=== PATIENT | female | born 2005 | race Caucasian/White ===

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

== ENCOUNTER 2023-06-19 17:28 | Emergency (ER) | payer OTHER ==
[~2023-06-19] VITALS: Ht 160 cm; Wt 109.7 kg
--- OUTSIDE RECORDS SUMMARY | ~2023-06-19 | XMS | Continuity of Care Document ---
Demographics + + + | Address | [address] | | | [place] [address] | + + + | Preferred Language | Unknown | + + + | Marital Status | Never | + + + | Congregation Affiliation | Unknown | + + + | Race | White | + + + | Ethnic Group | Not or | + + + Author + + + | Author | [facility] | + + + | Organization | [facility] | + + + | Address | [address] | | | [place] [address] | + + + | Phone | | + + + Care Team Providers + + + + | Care Data Lead Name | Role | Phone | + + + + Unavailable | Unavailable | + + + + Unavailable | Unavailable | + + + + Allergies and Intolerances + + + + + + | date | description | facility | reaction | severity | + + + + + + | (no date) | Mild [facility] (no reaction) | (no severity) | | [facility] | | | + + + + + + Encounters No information. Functional Status No information. Immunizations No information. Medications + + + + | date | description | facility | + + + + | 2022-12-19 00:00 | Testosterone | [facility] | + + + + | 2022-12-19 00:00 | MONTELUKAST SODIUM | [facility] | + + + + | 2022-12-19 00:00 | SUMATRIPTAN SUCCINATE | [facility] | + + + + | 2019-07-07 00:00 | CEPHALEXIN | [facility] | + + + + | 2019-10-21 00:00 | predniSONE | [facility] | + + + + | 2022-12-19 00:00 | AMOXICILLIN/POTASSIUM CLAV | [facility] | | | | | + + + + | 2019-10-21 00:00 | ALBUTEROL SULFATE | [facility] | + + + + | 2022-12-19 00:00 | ALBUTEROL SULFATE | [facility] | + + + + | 2022-12-19 00:00 | FLUTICASONE PROPIONATE | [facility] | + + + + Problems + + + + | date | description | facility | + + + + | 2016-02-22 00:00 | Acute allergic reaction | [facility] | + + + + | 2017-04-07 00:00 | Cyst of right ovary | [facility] | + + + + | 2017-04-07 00:00 | Abdominal pain | [facility] | + + + + | 2018-03-09 00:00 | Autistic disorder | [facility] | + + + + | 2019-07-07 00:00 | Urinary tract infection | [facility] | + + + + | 2021-12-24 00:00 | Right upper quadrant | [facility] | | | abdominal pain | | + + + + | 2022-12-19 00:00 | Migraine headache | [facility] | + + + + Procedures No information. Results/Labs No information. Social History No information. Vital Signs + + + +---------+ | date | measurement | value | units | + + + +---------+ | 2022-12-19 00:00 | BMI | 41.1 | kg/m2 | + + + +---------+ | 2022-12-19 00:00 | BMI | 50 | % | + + + +---------+ | 2022-12-19 00:00 | BP_diastolic | 43 | mmHg | + + + +---------+ | 2022-12-19 00:00 | BP_systolic | 107 | mmHg | + + + +---------+ | 2022-12-19 00:00 | heart_rate | 74 | /min | + + + +---------+ | 2022-12-19 00:00 | height_metric | 160.02 | cm | + + + +---------+ | 2022-12-19 00:00 | height_standard | 63 | in | + + + +---------+ | 2022-12-19 00:00 | o2_saturation | 98 | % | + + + +---------+ | 2022-12-19 00:00 | respiration_rate | 14 | /min | + + + +---------+ | 2022-12-19 00:00 | temperature_metric | 37.11 | C | | | | | | + + + +---------+ | 2022-12-19 00:00 | | 98.8 | F | | | temperature_standar | | | | | d | | | + + + +---------+ | 2022-12-19 00:00 | weight_metric | 105.23 | kg | + + + +---------+ | 2022-12-19 00:00 | weight_standard | 232 | lb | + + + +---------+"
--- OUTSIDE RECORDS SUMMARY | ~2023-06-19 | XMS | Continuity of Care Document ---
Demographics + + + | Address | [address] | | | [place] [address] | + + + | Preferred Language | Unknown | + + + | Marital Status | Never | + + + | Moravian Affiliation | Unknown | + + + | Race | White | + + + | Ethnic Group | Not or | + + + Author + + + | Author | [facility] | + + + | Organization | [facility] | + + + | Address | [address] | | | [place] [address] | + + + | Phone | | + + + Care Team Providers + + + + | Care Polymer Materials Consultant Name | Role | Phone | + [...] | 2022-12-19 00:00 | Testosterone | [facility] | + + + + | 2022-12-19 00:00 | MONTELUKAST SODIUM | [facility] | + + + + | 2022-12-19 00:00 | SUMATRIPTAN SUCCINATE | [facility] | + + + + | 2019-07-07 00:00 | CEPHALEXIN | [facility] | + + + + | 2019-10-21 00:00 | predniSONE | [facility] | + + + + | 2022-12-19 00:00 | AMOXICILLIN/POTASSIUM CLAV | [facility] | | | | | + + + + | 2019-10-21 00:00 | ALBUTEROL SULFATE | [facility] | + + + + | 2022-12-19 00:00 | ALBUTEROL SULFATE | [facility] | + + + + | 2022-12-19 00:00 | FLUTICASONE PROPIONATE | [facility] | + + + + Problems + + + + | date | description | facility | + + + + | 2016-02-22 00:00 | Acute allergic reaction | [facility] | + + + + | 2017-04-07 00:00 | Cyst of right ovary | [facility] | + + + + | 2017-04-07 00:00 | Abdominal pain | [facility] | + + + + | 2018-03-09 00:00 | Autistic disorder | [facility] | + + + + | 2019-07-07 00:00 | Urinary tract infection | [facility] | + + + + | 2021-12-24 00:00 | Right upper quadrant | [facility] | | | abdominal pain | | + + + + | 2022-12-19 00:00 | Migraine headache | [facility] | + + + + Procedures [...]
[~2023-06-19 17:28] MED LIST changes: +IMITREX25 MG PO
[2023-06-19] MEDS ORDERED: FINASTERIDE1 MG PO (17:38)
[2023-06-19] MEDS ORDERED: MONTELUKAST SOD10 MG PO (17:38)
[2023-06-19] MEDS ORDERED: TESTOSTERONE5 GM TD (17:38)
[2023-06-19] MEDS ORDERED: FLUTICASONE PRO12 GM INH (17:39)
[2023-06-19 18:58] VITALS: BP 100/65
== END 2023-06-19 18:59 | disposition home or self-care (01) ==
LOC: ED 17:28 → EDSEX 17:28 → ED 18:59
DX: S93.402A Sprain of unspecified ligament of left ankle, initial encounter (principal); W10.9XXA Fall (on) (from) unspecified stairs and steps, initial encounter; X50.1XXA Overexertion from prolonged static or awkward postures, initial encounter; J45.909 Unspecified asthma, uncomplicated; Z88.2 Allergy status to sulfonamides; Z79.899 Other long term (current) drug therapy
CPT/HCPCS: 73610; 73630; 99283-25

== ENCOUNTER 2024-06-06 07:18 | Day surgery (SDC) | payer OTHER ==
[2024-05-31 15:41] VITALS: BP 115/74
[~2024-06-06] VITALS: Ht 160 cm; Wt 115.5 kg
[~2024-06-06 07:18] MED LIST changes: +FINASTERIDE1 MG PO; +FLUTICASONE PRO12 GM INH; +IBLOOD GLUCOSE TEST STRIP 1 EA TEST VI PRN; +LACTATED RINGER'S 1,000 ML IV SCH; +LIDOCAINE HCL 1% 5 ML SDV INJ ONE; +TESTOSTERONE5 GM TD
[2024-06-06 07:27] VITALS: BP 133/76
--- NOTE | 2024-06-06 08:02 | NUR ---
VISITED DURING SPIRITUAL CARE ROUNDS. PT ANXIOUS ABOUT IV, LOOKING FORWARD POSITIVE OUTCOME FROM PROCEDURE. LAST CODE STRIPER PROVIDED SUPPORTIVE PRESENCE, ANXIETY CONTAINMENT, NORMALIZED PT EXPERIENCE, PROVIDED PRAYER. PT EXPRESSED GRATITUDE.
[2024-06-06] MEDS ORDERED: fentaNYL citrate 100 MCG/2 ML VIAL ONE (10:58)
[2024-06-06] MEDS ORDERED: ACETAMINOPHEN 1,000 MG/100 ML VIAL ONE (10:59)
[2024-06-06] MEDS ORDERED: LIDOCAINE HCL 2% 5 ML SDV ONE (10:59)
[2024-06-06] MEDS ORDERED: KETOROLAC TROMETHAMINE 30 MG/ML VIAL ONE (10:59)
[2024-06-06] MEDS ORDERED: propofoL 200 MG/20 ML VIAL ONE (10:59)
[2024-06-06] MEDS ORDERED: ROCURONIUM BROMIDE 50 MG/5 ML SYR ONE (10:59)
[2024-06-06] MEDS ORDERED: DEXAMETHASONE SOD PHOS 4 MG/ML VIAL ONE (10:59)
[2024-06-06] MEDS ORDERED: ondansetron HCL 4 MG/2 ML VIAL ONE (10:59)
[2024-06-06] MEDS ORDERED: dexmedeTOMIDine HCl 200 MCG/2 ML VIAL ONE (10:59)
[2024-06-06] MEDS ORDERED: NALOXONE HCL 0.4 MG SYR IV PRN ×2 (12:15→12:30)
[2024-06-06] MEDS ORDERED: ondansetron HCL 4 MG/2 ML VIAL IV PRN ×2 (12:15→12:30)
[2024-06-06] MEDS ORDERED: IBLOOD GLUCOSE TEST STRIP 1 EA TEST VI PRN (12:15)
[2024-06-06] MEDS ORDERED: droPERidol 5 MG/2 ML VIAL IV PRN (12:15)
[2024-06-06] MEDS ORDERED: fentaNYL citrate 50 MCG/ML SDV IV PRN (12:15)
--- NOTE | 2024-06-06 12:19 | NUR ---
06/06/24 1219 Halima Miles PATIENT REPORTS "NOT REALLY" WHEN ASKED IF THEY ARE HAVING PAIN.
[2024-06-06] MEDS ORDERED: MORPHINE SULFATE 10 MG/ML VIAL IV PRN (12:30)
[2024-06-06] MEDS ORDERED: PROCHLORPERAZINE EDISYLATE 10 MG/2 ML VIAL IV PRN (12:30)
[2024-06-06] MEDS ORDERED: MAGNESIUM HYDROXIDE/AL HYDROX 30 ML CUP PO PRN (12:30)
[2024-06-06] MEDS ORDERED: FAMOTIDINE 20 MG/ 2 ML VIAL IV PRN (12:30)
[2024-06-06] MEDS ORDERED: HYDROCODONE/ACETA 5/325 TAB PO PRN (12:30)
[2024-06-06] MEDS ORDERED: METOCLOPRAMIDE HCL 10 MG/2 ML SDV IV PRN (12:30)
[2024-06-06] MEDS ORDERED: SIMETHICONE 125 MG TABLET CHEWABLE PO PRN (12:30)
[2024-06-06 12:41] VITALS: BP 125/51
--- NOTE | 2024-06-06 12:54 | NUR ---
1234 PT ARRIVED TO DAY SURGERY FROM PACU VIA STRECHER. PT REPORTS 4/10 TOLERABLE PAIN. PT REPORTS NO NAUSEA, BUT REPORTS GETTING DIZZY WHEN OPENING EYES. PT MOTHER AT BEDSIDE. VITALS TAKEN, IV ASSESSED. PT HAS ICE WATER AND PUDDING AT BEDSIDE. BED LOW AND LOCKED AND CALL LIGHT WITHIN REACH.
[2024-06-06] MEDS ORDERED: SIMETHICONE 125 MG TABLET CHEWABLE PO SCH (13:00)
[2024-06-06] MEDS ORDERED: SUGAMMADEX SODIUM 200 MG/2 ML ML ONE (13:20)
[2024-06-06 13:49] VITALS: BP 116/59
--- NOTE | 2024-06-06 13:53 | NUR ---
1350 PT MORE AWAKE NOW. PT ABLE TO TOLERATE PO FLUIDS. PT REPORTS NOT BEING DIZZY ANYMORE. VITALS TAKEN IV ASSESSED. PT MOTHER AT BEDSIDE. PT REPORTS 4/10 TOLERABLE PAIN.
[2024-06-06 14:40] VITALS: BP 123/63
--- NOTE | 2024-06-06 14:41 | NUR ---
1441 VITALS TAKEN. IV ASSESSED. PT REPORTS TOLERABLE 3/10 PAIN. PT REPORTS NO NAUSEA. PT HAS CALL LIGHT WITHIN REACH, PERSONAL ITEMS WITHIN REACH. MOTHER AND FRIEND AT BEDSIDE.
--- NOTE | 2024-06-06 14:51 | NUR ---
1445 pt able to ambulate to bathroom and void 400 mls of urine. discharge inforamtion gone over with mother at bedside. pt getting dressed on own.
--- NOTE | 2024-06-06 15:10 | NUR ---
1457 PT IV DISCONTINUED, WRAPPED IN COBAN AND GAUZE. 1458 PT DISCHARGED FROM DAY SURGERY. PT HAS BEEN ABLE TO TOLERATE PO FLUIDS AND PUDDING. PT WAS ABLE TO VOID. PT DISCHARGED FROM DAY SURGERY VIA WHEELCHAIR TO THE FRONT OF THE HOSPITAL TO PT'S MOTHER'S CAR.
--- NOTE | 2024-06-06 19:07 | OR ---
[facility] [address] [place], [place] [address] Signed DATE OF OPERATION: 06/06/2024 SURGEON: Olvin Sanchez DO PREOPERATIVE DIAGNOSES: 1. Desires salpingectomy. 2. Morbid obesity. POSTOPERATIVE DIAGNOSES: 1. Desires salpingectomy. 2. Morbid obesity. PROCEDURE PERFORMED: Laparoscopic bilateral salpingectomy. BARREL SCRAPER: Isha Bernal MD ANESTHESIA: General. ESTIMATED BLOOD LOSS: 5 mL. COMPLICATIONS: None. SPECIMEN: Bilateral fallopian tubes. FINDINGS: Normal external genitalia with normal clitoris, urethral meatus, bilateral [place]'s and Bartholin's. Significant vaginal atrophy and quite narrow introitus that bled with gentle operative prep by the RN. Cervix is small and extremely high and unable to be well visualized. On laparoscopy, normal liver, stomach, uterus, tubes, and ovaries. No pelvic pathology identified. Hemostasis at the end the procedure. INDICATIONS: Inocencio is a pleasant 18-year-old trans male patient, who presents for bilateral salpingectomy. The patient is currently sexually active with one male partner and not Electronically Signed By: OLVIN SANCHEZ DO (JD) 06/06/24 1907 PATIENT NAME: INOCENCIO DE LEON [facility] OPERATIVE REPORT DATE OF : 03 REPORT #: [id number] PHYSICIAN: OLVIN SANCHEZ DO (JD) PCP: FELICE SOTO MD REPORT IS CONFIDENTIAL AND NOT TO BE RELEASED WITHOUT AUTHORIZATION [facility] [address] [place], [place] [address] Signed currently on anything for contraception. They would like to avoid at all cost and the patient would like to decrease risk of ovarian cancer. Desires bilateral salpingectomy which was endorsed by her psychiatric care team as well as her PCP. Patient is also supported by their family including mother who is attending patient today. Risks, benefits, and alternatives were discussed in detail with the patient. The patient understands and wished to proceed with the procedure. DESCRIPTION OF PROCEDURE: The patient was taken to the OR where time-out was performed to confirm correct patient and correct procedure. General anesthesia was adequately established. The patient was prepped and draped in the dorsal lithotomy position with the feet in Yellofin stirrups. ICPs were on and running and no preoperative antibiotics or heparin was indicated. A Baugh catheter was inserted. A very narrow introitus was noted with a small amount of bleeding from vaginal prep performed by the RN. A Yuliana retractor was placed in the vagina and attempts to visualize and grasp the cervix was performed. However, given the very high nature of the cervix and risk for additional incidental irritation to the vagina, the decision was made to abandon uterine manipulation. A sponge stick was then gently placed in the vagina and attention was turned to the abdomen. Surgeon's gloves were changed. The base of the umbilicus was infiltrated with 0.25% Marcaine with epinephrine and a 5 mm stab incision was made with an 11 blade. A 5 mm port was placed under direct visualization without complication with identification of each layer and with low opening pressures noted. Survey of the abdomen and pelvis was performed demonstrating normal liver, stomach, uterus, tubes, and ovaries, and no obvious endometriosis or other pelvic pathology. 5 mm compounding assistant ports were placed in the left lower and right lower quadrants under direct visualization without complication. A complete survey of the pelvis was performed again confirming no pelvic pathology. Attention was turned to salpingectomy. The right fallopian tube was grasped at the fimbriated end, elevated and divided along the mesosalpinx to the cornua. The tube was amputated at the cornu and sent to pathology for further evaluation. The process repeated on the left side without difficulty. Excellent hemostasis was appreciated. The pneumoperitoneum was reduced. Trocars were removed and trocar sites were repaired using 3-0 Vicryl Rapide. The Baugh catheter was removed. Sponge stick was removed and the patient was taken to the PACU in good and stable condition. Sponge, needle, and instrument counts was correct x2 at the end of the procedure. Dr. Bernal was present and participated in all portions of procedure. Electronically Signed By: OLVIN SANCHEZ DO (JD) 06/06/24 1907 PATIENT NAME: INOCENCIO DE LEON OPERATIVE REPORT DATE OF : 03 REPORT #: [id number] PHYSICIAN: OLVIN SANCHEZ DO (JD) PCP: FELICE SOTO MD REPORT IS CONFIDENTIAL AND NOT TO BE RELEASED WITHOUT AUTHORIZATION [address] [address] Signed DO ANDI Hebert/MODL /[id number] Copies: ~ Electronically Signed By: OLVIN SANCHEZ DO (JD) 06/06/24 1907 PATIENT NAME: INOCENCIO DE LEON [facility] OPERATIVE REPORT DATE OF : 03 REPORT #: [id number] PHYSICIAN: OLVIN SANCHEZ DO (JD) PCP: FELICE SOTO MD REPORT IS CONFIDENTIAL AND NOT TO BE RELEASED WITHOUT AUTHORIZATION
--- NOTE | 2024-06-09 11:57 | PATH ---
[facility] [address] [place], [place] [address] Signed SPECIMEN(S): A FALLOPIAN TUBES, BILATERAL SPECIMEN SOURCE: A. FALLOPIAN TUBES, BILATERAL CLINICAL HISTORY: Risk reduction for ovarian cancer. Bilateral salpingectomy. FINAL PATHOLOGIC DIAGNOSIS: Bilateral fallopian tubes, salpingectomies: - Histologically unremarkable fimbria and fallopian tubes with full lumen identified. NA MICROSCOPIC EXAMINATION: Histologic sections of all submitted blocks are examined by light microscopy. These findings, together with the gross examination, support the pathologic diagnosis. GROSS DESCRIPTION: The specimen, labeled and designated "Jared Richardson, fallopian tubes bilateral," is received in formalin and consists of two bluegray tubular segments consistent with fallopian tube with attached fimbriated end. First measuring 6.7 cm in length by 0.5 cm in greatest diameter. Second measuring 7.0 cm in length by 0.5 cm in greatest diameter. Both are grossly unremarkable international representative sections submitted in cassettes A1 and A2 respectively. VANDANA (under the direct supervision of a pathologist) The Gross Description was prepared using a voice recognition system. The report was reviewed for accuracy; however, sound-alike word errors, addition and/or deletions may occur. If there is any question about this report, please contact Client Services. ADDITIONAL NOTES: Immunohistochemical and/or in situ hybridization studies if performed in this case included appropriate positive controls that reacted as expected. This test was developed and its performance characteristics determined by [facility]. It has not been cleared or approved by the U.S. Food and Drug Administration. The FDA has determined that such clearance or approval is not necessary. This test is used for clinical purposes. It should not be regarded PATIENT NAME: INOCENCIO DE LEON PATHOLOGY DATE OF : 03 REPORT #: [id number] PHYSICIAN: ARACELI MCINTOSH PCP: FELICE SOTO MD REPORT IS CONFIDENTIAL AND NOT TO BE RELEASED WITHOUT AUTHORIZATION [address] [address] Signed as investigational or for research. [facility] is certified under the Clinical Laboratory Improvement Amendments of 1988 (CLIA) as qualified to perform high complexity clinical laboratory testing. PERFORMING LABORATORY: Technical component was performed by [facility], [address] [place] [address] (CLIA# [id number]). Professional interpretation was performed by [facility], [address] [place] [address] (CLIA#: [id number]). Diagnostician: Rolan Bishop MD Pathologist Electronically Signed 06/09/2024 Copies: ~ PATIENT NAME: INOCENCIO DE LEON PATHOLOGY DATE OF : 03 REPORT #: [id number] PHYSICIAN: ARACELI PATHOLOGY PCP: FELICE SOTO MD REPORT IS CONFIDENTIAL AND NOT TO BE RELEASED WITHOUT AUTHORIZATION
== END 2024-06-06 14:58 | disposition home or self-care (01) ==
LOC: DS 07:18 → EDSEX 07:18 → DS 09:00
PROVIDERS: ATTEND Obstetrics & Gynecology
PROC: 0UB74ZZ Excision of Bilateral Fallopian Tubes, Percutaneous Endoscopic Approach (ICD-10-PCS; principal; 2024-06-06 09:00)
DX: Z40.03 Encounter for prophylactic removal of fallopian tube(s) (principal); E66.01 Morbid (severe) obesity due to excess calories; F64.0 Transsexualism; J45.909 Unspecified asthma, uncomplicated; F32.9 Major depressive disorder, single episode, unspecified; Z68.41 Body mass index [BMI] 40.0-44.9, adult; Z79.899 Other long term (current) drug therapy; Z88.2 Allergy status to sulfonamides; Z88.8 Allergy status to other drugs, medicaments and biological substances
CPT/HCPCS: 00840; 88302; A9270; J0131; J1100; J1885; J2001; J2405; J2704; J3010; J3490; J7121

== ENCOUNTER 2025-10-01 17:32 | Emergency (ER) | payer OTHER ==
[~2025-10-01] VITALS: Ht 160 cm; Wt 110.4 kg
[~2025-10-01 17:32] MED LIST changes: -IBLOOD GLUCOSE TEST STRIP 1 EA TEST VI PRN; -LACTATED RINGER'S 1,000 ML IV SCH; -LIDOCAINE HCL 1% 5 ML SDV INJ ONE
[2025-10-01] MEDS ORDERED: FLUOXETINE HCL40 MG PO (18:37)
[2025-10-01] MEDS ORDERED: TESTOSTERO200 MG/1 M IM (18:38)
[2025-10-01] MEDS ORDERED: ASMANEX HFA13 G1 IH (18:38)
[2025-10-01 19:12] VITALS: BP 131/71
== END 2025-10-01 19:12 | disposition home or self-care (01) ==
LOC: ED 17:32
DX: S91.202A Unspecified open wound of left great toe with damage to nail, initial encounter (principal); W22.8XXA Striking against or struck by other objects, initial encounter; J02.9 Acute pharyngitis, unspecified; J45.909 Unspecified asthma, uncomplicated; Z88.2 Allergy status to sulfonamides; Z88.1 Allergy status to other antibiotic agents; Z79.899 Other long term (current) drug therapy
CPT/HCPCS: 73630; 99283

== ENCOUNTER 2025-10-18 20:35 | Emergency (ER) | payer OTHER ==
[~2025-10-18] VITALS: Ht 160 cm; Wt 111.0 kg
[~2025-10-18 20:35] MED LIST changes: +ASMANEX HFA13 G1 IH; +FLUOXETINE HCL40 MG PO; +TESTOSTERO200 MG/1 M IM
--- OUTSIDE RECORDS SUMMARY | 2025-10-18 20:42 | XMS ---
PreManage Notification: INOCENCIO DE LEON Security Marble Installer Events No recent Security Events currently on file CRITERIA MET - [facility] - 2 Visits in 30 Days CARE PROVIDERS -, [facility] Dentist: Auto Hiker Current [employer] PHONE: [phone] [facility]: Multi-Specialty Current FAMILY PHONE: Unknown Dixon has no Care Guidelines for this patient. EWendy VISIT COUNT (12 MO.) 2 [facility] TOTAL 2 NOTE: Visits indicate total known visits. ED/UCC VISIT TRACKING (12 MO.) 10/18/2025 20:36 [facility] [place] TYPE: Emergency COMPLAINT: - FACE NUMBNESS 10/01/2025 17:32 [facility] [place] TYPE: Emergency COMPLAINT: - LT BIG TOE INJURY DIAGNOSES: - Acute pharyngitis, unspecified - Allergy status to other antibiotic agents - Allergy status to sulfonamides - Other assistant terminal manager (current) drug therapy - Pain in left toe(s) - Striking against or struck by other objects, initial encounter - Unspecified asthma, uncomplicated - Unspecified open wound of left great toe with damage to nail, initial encounter INPATIENT VISIT TRACKING (12 MO.) No inpatient visits to display in this time frame [email or web address]
[2025-10-18 22:07] LABS: BASOPHILS 0.8 % (0.1-1.2); EOSINOPHILS 3.5 % (0.7-5.8); LYMPHOCYTES 23.8 % (19.3-51.7); MCH 25.5 PG (25.6-32.2); MCHC 32.0 g/dL (32.2-35.5); MCV 79.5 fL (79.4-94.8); MONOCYTES 6.8 % (4.7-12.5); NEUTROPHILS 64.8 % (34.0-71.1); RBC 5.18 M/uL (3.93-5.22)
[2025-10-18 22:34] LABS: ALT (SGPT) 42.0 U/L (14-59); AST (SGOT) 23.0 U/L (15-37); GLOMERULAR FILTRATION RATE,EST 81.0 mL/min (>60); PROTEIN, TOTAL 8.2 g/dL (6.4-8.2); UREA NITROGEN 13.0 mg/dL (7-18)
[2025-10-18] MEDS ORDERED: PREDNISONE20 MG PO (23:34)
[2025-10-19 00:28] VITALS: BP 133/80
== END 2025-10-19 00:31 | disposition home or self-care (01) ==
LOC: ED 20:35
PROVIDERS: Internal Medicine
DX: G51.0 Bell's palsy (principal); Z79.51 Long term (current) use of inhaled steroids; Z79.899 Other long term (current) drug therapy; Z88.1 Allergy status to other antibiotic agents; Z88.2 Allergy status to sulfonamides
CPT/HCPCS: 36415; 80053; 85025; 99284